=== PATIENT | male | born 1980 | race Two or more races ===

== ENCOUNTER 2024-02-16 15:19 | Emergency (ER) | payer OTHER ==
[~2024-02-16] VITALS: Ht 172.7 cm; Wt 99.8 kg
[2024-02-16] MEDS ORDERED: CETIRIZINE HCL 5 MG/5 ML ML PO STA (18:50)
[2024-02-16] MEDS ORDERED: GUAIFENESIN/DEXTROMETHORPHAN 10ML BLIST.PACK PO STA (18:51)
[2024-02-16] MEDS ORDERED: ZYRTEC10 MG PO (18:56)
[2024-02-16] MEDS ORDERED: SINGULAIR10 MG PO (18:56)
[2024-02-16] MEDS ORDERED: MUCINEX DM ER1 EACH PO (18:56)
== END 2024-02-16 20:05 | disposition home or self-care (01) ==
LOC: ER 15:21
DX: J06.9 Acute upper respiratory infection, unspecified (principal); R05.9 Cough, unspecified; Z88.6 Allergy status to analgesic agent; Z88.9 Allergy status to unspecified drugs, medicaments and biological substances